=== PATIENT | male | born 1995 | race Caucasian/White ===

== ENCOUNTER 2024-07-27 10:59 | Emergency (ER) | payer OTHER, SELFPAY ==
[2024-07-27 11:12] VITALS: BP 130/64; PULSE 81; RESP 17; TEMP 37; O2SAT 99; BMI 19.3
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
== END 2024-07-27 14:18 | disposition left against medical advice (07) ==
PROVIDERS: Emergency Provider Emergency Medicine; PCP Internal Medicine Medical Oncology
CPT/HCPCS: 99281